=== PATIENT | female | born 1940 ===

== ENCOUNTER 2018-01-24 07:44 | Inpatient (IN) | payer OTHER ==
[~2018-01-24] VITALS: Ht 152.4 cm; Wt 59.0 kg
== END 2018-01-28 15:48 | DRG 470 ==
LOC: O/R 01-25 06:55 → SURH 01-25 06:55
PROVIDERS: Orthopaedic Surgery
PROC: 0SRD0J9 Replacement of Left Knee Joint with Synthetic Substitute, Cemented, Open Approach (ICD-10-PCS; principal; 2018-01-25 10:00)
DX: M17.12 Unilateral primary osteoarthritis, left knee (principal); D62 Acute posthemorrhagic anemia